=== PATIENT | male | born 1985 | race Caucasian/White ===

== ENCOUNTER 2019-11-27 10:13 | Emergency (ER) | payer BC, SELFPAY ==
[2019-11-27] VITALS (19 sets, daily range): BP systolic 112–135; BP diastolic 65–112; PULSE 77–92; RESP 14–20; TEMP 36.4; O2SAT 95–99
--- NOTE | ~2019-11-27 | XR_ITS ---
EXAMINATION: XR abdomen/kub 1V INDICATION: Right flank pain TECHNIQUE: Supine views of the abdomen were obtained on 2 radiographs. COMPARISON: None FINDINGS: There is a 2 mm calcification right pelvis which likely corresponds to the bladder stone id entified on CT. The bowel gas pattern. Lumbar spondylosis is noted at L4-5 and L5-S1 IMPRESSION: 1. 2 mm calcification of the right pelvis, likely corresponding to the bladder stone detected on CT. Reviewed, dictated and finalized at location B.
--- NOTE | ~2019-11-27 | CT_ITS ---
EXAMINATION: CT abdomen pelvis wo con DATE: 11/27/2019 11:47 INDICATION: Flank pain TECHNIQUE: Computed tomography (CT) of the right flank pain was performed without intravenous contras t. The dose-length product (DLP) was 1668.17 mGy-cm. Automated exposure control and iterative reconst ruction technique were employed. COMPARISON: None FINDINGS: The lung bases are clear. The heart size is normal. The liver is diffusely low in attenuati on when compared with the spleen, consistent with hepatic steatosis. Punctate calcifications in an ot herwise normal spleen likely represent healed granulomatous disease. The pancreas, gallbladder, and a drenal glands are normal. The kidneys are unremarkable. There is mild right hydroureter and mild ar atous fat stranding surrounding the ureter a 2 mm stone is present in the bladder which likely reflec ts recent passage of a right-sided stone. No pathologically enlarged abdominal or pelvic lymph nodes are identified. There is no free intraperitoneal gas or evidence of bowel obstruction. The appendix i s normal. There are bilateral L4 pars defects with grade 1 anterolisthesis of L4 on L5. There is mode rate loss of intervertebral disc space height at L4-5 and L5-S1. IMPRESSION: 1. Findings consistent with recent passage of a 2 mm right-sided stone which is now present within th e bladder. Reviewed, dictated and finalized at location B. IMPRESSION: 1. Findings consistent with recent passage of a 2 mm right-sided stone which is now present within the bladder.
[2019-11-27 10:42] LABS: Basophils Percent Auto 0.4 % (0.2-1.2); Eosinophils Absolute Auto 0.1 K/mm3 (0-0.3); Eosinophils Percent Auto 1.4 % (0-4.4); Hematocrit 48.3 % (42.0-52.0); Hemoglobin 16.7 g/dL (14.0-18.0); Immature Granulocyte Absolute 0.12 K/mm3 (0.00-0.031); Immature Granulocyte Percent A 1.2 % (0-0.5); Lymphocytes Absolute Auto 2.47 K/mm3 (0.9-3.2); Lymphocytes Percent Auto 25.7 % (18.3-44.2); Mean Corpuscular HGB Conc 34.6 g/dl (32-36); Mean Corpuscular Hemoglobin 30.4 pg (26-34); Mean Corpuscular Volume 87.8 fl (80-100); Mean Platelet Volume 10.3 fl (7.4-10.4); Monocytes Absolute Auto 0.7 K/mm3 (0.1-0.6); Monocytes Percent Auto 7.2 % (2.6-8.5); Neutrophils Absolute Auto 6.2 K/mm3 (1.3-6.7); Neutrophils Percent Auto 64.1 % (45.5-73.1); Platelet Count Result 270 k/mm3 (150-375); Red Cell Distribution Width 12.6 % (11.5-14.5); White Blood Count 9.6 K/mm3 (4.5-10.0)
[2019-11-27 10:54] LABS: Add Urine Microscopic? YES; Alanine Aminotransferase 65 U/L (4-50); Albumin Level 4.5 g/dL (3.5-5.1); Alkaline Phosphatase 89 U/L (38-126); Anion Gap 10 mmol/L (8-16); Appearance Urine Clear (Clear); Aspartate Amino Transferase 43 U/L (17-59); Bacteria Urine Trace /hpf; Bilirubin Urine Negative (Negative); Bilirubin,Total 0.4 mg/dL (0.2-1.3); Blood Urea Nitrogen 20 mg/dL (9-20); Blood Urine Negative (Negative); Calcium 8.9 mg/dL (8.4-10.2); Carbon Dioxide 26 mmol/L (22-30); Chloride 105 mmol/L (98-107); Color Urine Yellow (Yellow); Estimated CRCL calculation 125 ml/min; Estimated Glomerular Filt Rate > 60; Glucose 145 mg/dL (75-110); Glucose Urine UA Negative (Negative); Ketones Urine Negative (Negative); Leukocyte Esterase Ur Negative LEU/UL (Negative); Lipase 74 U/L (23-300); Mucus Urine Few /lpf; Nitrate Urine Negative (Negative); Potassium 3.6 mmol/L (3.4-5.0); Protein Urine 1+ mg/dL (Negative); RBC Urine 0-2 /hpf (0-2); Sodium 141 mmol/L (137-145); Specific Grav Ur 1.027 (1.001-1.035); Squamous Epithelial Cell Urine Rare /hpf (Few); Urobilinogen Urine Negative mg/dL (<2.0); WBC Urine 0-3 /hpf
--- NOTE | 2019-11-27 10:54 | ED.ABDPAIN ---
HPI - Abdominal Pain General Chief Complaint: Abdominal Pain Stated Complaint: FLANK PAIN Time Seen by Provider: 11/27/19 10:21 Source: patient Mode of arrival: EMS Limitations: no limitations History of Present Illness HPI narrative: This patient is a 34 year old male who presents for evaluation of right lower back pain . He developed sudden onset right lower back pain. THis pain is starting to radiate around to right lower abdomen. He has associated nausea but no vomiting. He has no urinary symptoms. He did not take any medication prior to calling EMS. EMS gave patient 2 mg morphine IV. He states his pain is unchanged and it is still severe. He denies previous history of kidney stones. Related Data Home Medications Medication Instructions Recorded Confirmed No Home Medications 11/27/19 11/27/19 Allergies Allergy/AdvReac Type Severity Reaction Status Date / Time No Known Allergies Allergy Verified 11/27/19 10:37 Review of Systems Review of Systems: All systems reviewed & are unremarkable except as noted in HPI and below Constitutional: Constitutional: Denies chills and Denies fever(s) Gastrointestinal: Gastrointestinal: Reports abdominal pain, Reports nausea and Reports vomiting Genitourinary: Genitourinary: Denies hematuria, Denies oliguria, Denies dysuria and Denies urinary frequency Musculoskeletal: Musculoskeletal: Reports back pain PMFSH Past Medical History Medical History (Updated 11/27/19 @ 12:32 by Toya Canada MD) Patient denies medical problems Surgical History Surgical History (Updated 11/27/19 @ 11:00 by Toya Canada MD) No significant past surgical history Social History Social History (Updated 11/27/19 @ 11:00 by Toya Canada MD) Smoking status: Never smoker Exam Const: General: alert Orientation/consciousness: patient oriented x3 Other: severe pain, writhing , dry heaving Eyes: EOM: EOMs intact bilaterally Resp: Effort & Inspection: normal respiratory effort, no retractions and no use of accessory muscles Auscultation: clear to auscultation bilaterally Cardio: Rate: regular rate Rhythm: regular rhythm Heart sounds: no murmurs GI: GI Palp: Yes Soft to palpation, Yes Tenderness to palpation present (GI) (RLQ), No Guarding due to palpation present (GI) and No Rigid due to palpation : General: Yes no CVA tenderness Skin: General skin exam: normal color Rashes: no rashes Neuro: General: patient oriented x3 and moves all extremities Psych: Mental Status: mental status grossly normal Course Reevaluation(s) Reevaluation #1: Patient's pain has resolved. I discussed with patient that he has passed kidney stone into his bladder. Date: 11/27/19 Time: 12:28 Vital Signs Vital signs: Vital Signs Pulse Rate 82 11/27/19 10:27 Respiratory Rate 20 11/27/19 10:27 Pulse Oximetry 98 11/27/19 10:27 Temperature 97.6 F 11/27/19 10:33 Pulse Rate 88 11/27/19 12:50 Respiratory Rate 16 11/27/19 12:50 Blood Pressure 122/74 11/27/19 12:50 Pulse Oximetry 98 11/27/19 12:50 MDM - Abdominal Pain Lab Data Attestation: I reviewed the patient's lab results. Result diagrams: 11/27/19 10:28 11/27/19 10:28 Labs: Lab Results 11/27/19 11/27/19 11/27/19 Range/Units 10:28 10:28 10:28 WBC 9.6 (4.5-10.0) K/mm3 RBC 5.50 (4.6-6.20) M/mm3 Hgb 16.7 (14.0-18.0) g/dL Hct 48.3 (42.0-52.0) % MCV 87.8 (80-100) fl MCH 30.4 (26-34) pg MCHC 34.6 (32-36) g/dl RDW 12.6 (11.5-14.5) % Plt Count 270 (150-375) k/mm3 MPV 10.3 (7.4-10.4) fl Immature Gran % (Auto) 1.2 H (0-0.5) % Neut % (Auto) 64.1 (45.5-73.1) % Lymph % (Auto) 25.7 (18.3-44.2) % Rains % (Auto) 7.2 (2.6-8.5) % Eos % (Auto) 1.4 (0-4.4) % Baso % (Auto) 0.4 (0.2-1.2) % Lymph # (Auto) 2.47 (0.9-3.2) K/mm3 Rains # (Auto) 0.7 H (0.1-0.6) K/mm3 Eos # (Auto) 0.1
[2019-11-27] MEDS: ONDANSETRON INJ 4 MG/2 ML VIAL IV PUSH (10:56)
[2019-11-27] MEDS: LACTATED RINGERS 1,000 ML 999 ML IV CONT (10:57)
== END 2019-11-27 12:52 | disposition home or self-care (01) ==
PROVIDERS: Emergency Provider General Practice
DX: N20.0 Calculus of kidney (principal)
CPT/HCPCS: 36415; 74018; 74176; 80053; 81001; 83690; 85025; 96361; 96374; 96375; 99284; J1170; J2405; J7120